=== PATIENT | female | born 2000 | race American Indian/Alaskan Native ===

== ENCOUNTER 2021-10-29 13:33 | Inpatient (IN) | payer MEDICAID ==
[2021-10-29] MEDS ORDERED: ACETAMINOPHEN 325 MG TAB PO PRN (13:56)
[2021-10-29] MEDS ORDERED: LACTATED RINGERS 1,000 ML IV SCH (14:00)
--- NOTE | 2021-10-29 14:02 | History and Physical Report ---
History of Present Illness Date of examination: 10/29/21 Date of admission: 10/29/2021 Chief complaint: Sent from [facility] for elevated BP. History of present illness: G1 @ 34.4w sent from [facility] for direct admission for BP monitoring and 24 hour urine collection. At the time of bedside assessment, BPs have been normotensive. NST reactive, irregular contractions not perceived by pt. Affirms FM and denies vaginal bleeding, LOF, abdominal pain, chest pain, SOB, vision changes, RUQ and NVD. Upon questioning, Pamela does endorse having a headache yesterday that resolved with Tylenol. Denies headache presently and states headache yesterday was an isolated event. Pt reports being nervous for [facility] appointments, particularly concerned about baby being breech w/ last US and needing a c- section, told today baby is cephalic which brings her much relief. Currently taking aspirin and PNV. Last bowel movement this AM. Plan of care during hospital stay discussed including BP monitoring, 24 hour urine, and monitoring. Education provided regarding signs and symptoms of pre-eclampsia, encouraged to verbalize any arising needs or concerns. Pt agreeable to plan of care. RNs completed bedside shift report and updated on POC. EDC Confirmation: 12/06/2021 Past History: : 1 Term Births: 0 Premature Births: 0 Living Children: 0 Para: 0 Mult. Births: 0 Prev : 0 Aborta: 0 Elect. Ab: 0 Spont. Ab: 0 Ectopics: 0 Past Medical History: Reviewed and updated today: Negative Past Surgical History: Reviewed and updated today: Negative Risk Factors: Smoked Tobacco Use: Never smoker Smokeless Tobacco Use: Never Counseled to Quit/Cut Down: yes Passive Smoke Exposure: no HIV High Risk Behavior: no Caffeine Use: 0 drinks per day Exercise: yes Times/wk: 3 Exercise Counseling: yes Seatbelt Use: preg-career counselor % Family History Risk Factors: Family History of WA in 1 Female Relative Age < 65: no Family History of WA in 1 Male Relative Age < 55: no No Dietary Counseling Reason: pn yes Alcohol Use: no Drug Use: no Past Medical History: Anesthesia Complications: negative Anemia: negative Autoimmune Disorder: negative Bleeding Disorder: negative Blood Transfusions: negative Breast Disease: negative Diabetes: negative Heart Disease: negative Hypertension: negative Hepatitis/Liver Disease: negative Kidney Disease/UTI: negative Neurologic/Epilepsy/Migraines: positive, reports migraines with seasonal pollen allergies, takes Zyrtec and Flonase Phlebitis/Varicosities: negative Psychiatric: negative Pulmonary Disease/Asthma: negative Thyroid Disease: negative Hospitalizations: negative Surgery (Non-machine bunch maker): negative Abnormal PAP: negative SATNAM Exposure: negative Infertility: negative Uterine Anomaly: negative Uterine Surgery (not C/S): negative Other Gynecologic Problems: negative Family Hx: MGM- HTN Aunt- HTN Infection History: HIV Risk Eval: no Hepatitis B Risk Eval: low risk Personal hx. of genital herpes: no Partner hx. of genital herpes: no Rash, Viral, or Febrile illness since last LMP? no Varicella/Chicken Pox Status: Unknown TB Risk: no Genetic History: Congenital Heart Defect: Mom: no Dad: no Wanda Disease: Mom: no Dad: no Thalassemia Mom: no Dad: no Neural Tube Defect Mom: no Dad: no Down's Syndrome Mom: no Dad: no Vidal-Sachs Mom: no Dad: no Sickle Cell Disease/Trait Mom: no Dad: no Hemophilia Mom: no Dad: no Muscular Dystrophy Mom: no Dad: no Cystic Fibrosis Mom: no Dad: no [place] Chorea Mom: no Dad: no Mental Retardation Mom: no Dad: no Fragile X Mom: no Dad: no Other Genetic/Chromosomal Disorder Mom: no Dad: no Child w/other defect Mom: no Dad: no Environmental Exposures: Xray Exposure: no Medication, drug, or alcohol use since LMP: no Chemical/Other Exposure: no Exposure to Cat Liter: no Hx of Parvovirus (Fifth Disease): no Occupational Exposure to Children: none Current Allergies (reviewed today): No known allergies Past History - Obstetrical History Expected Date of Delivery: 12/06/21 Actual Gestation: 34 Week(s) 5 Day(s) : 1 Para: 0 Hx # Term Pregnancies: 0 Number of Pregnancies: 0 Spontaneous Abortions: 0 Induced : 0 Number of Living Children: 0 Medications and Allergies Allergies Allergy/AdvReac Type Severity Reaction Status Date / Time No Known Allergies Allergy Unverified 10/29/21 14:14 Review of Systems Constitutional: no weight loss, no fever, no chills, no sweats, no chronic headaches, no chronic pain Eyes: no blurred vision, no photophobia, no decreased vision Cardiovascular: no chest pain, no orthopnea, no palpitations, no edema, no lightheadedness, no shortness of breath, no dyspnea on exertion, no high blood pressure, no leg edema Respiratory: no cough, no shortness of breath, no dyspnea on exertion Breasts: deferred Gastrointestinal: no abdominal pain, no nausea, no vomiting, no diarrhea, no constipation Genitourinary: deferred Rectal Exam: deferred Neurological: no seizures, no syncope, no headaches, no migraines, no double vision, no loss of vision Psychiatric: no anxiety, no difficulties concentrating, no confusion, no irritability, no sadness/tearfullness - Vital Signs Vital signs: Normotensive since arrival on unit. SVE deferred. Cat 1 FHT, irregular contractions not perceived by pt. - Physical Exam Breasts: Positive: deferred Cardiovascular: Regular rate, Normal S1, Normal S2 Lungs: Positive: Clear to auscultation, Normal air movement Abdomen: Positive: normal appearance, soft Extremities: Positive: normal Deep Tendon Reflex Grade: Normal +2 - Obstetrical FHR: category 1 Uterine Contraction Monitor Mode: External Uterine Contraction Pattern: Irregular Uterine Tone Measurement Phase: Resting Results Result Diagrams: 10/29/21 Unknown 10/29/21 Unknown All other labs normal. Assessment and Plan A: 20 yo G1 @ 34 weeks mild range BP at [facility] Blood pressures normotensive Cat 1 FHT Asymptomatic for s/sx of pre-eclampsia - Patient Problems (1) Elevated blood pressure affecting in third trimester, antepartum Current Visit: Yes Status: Acute Plan to address problem: Admit to labor and delivery per [facility] recommendation Initiate IV. Draw admission labs. Frequent BP monitoring 24 hour urine and serum pre-eclampsia labs ordered and drawn, results pending Education provided to pt regarding signs and symptoms of pre-eclampsia (2) 34 weeks gestation of Current Visit: Yes Status: Acute Plan to address problem: cEFM x4 hours, if FHT remains Cat 1, change to NST q4 hours
[2021-10-29] MEDS ORDERED: ALUM-MAG HYDROXIDE-SIMETHICONE 200-200-20MG/5ML ORAL LIQD 30 ML PO PRN (14:30)
[2021-10-29] MEDS ORDERED: ONDANSETRON 4 MG/2 ML INJ IV PRN (14:30)
[2021-10-29] MEDS ORDERED: DOCUSATE SODIUM 100 MG CAP PO PRN (14:30)
[2021-10-29] MEDS ORDERED: ACETAMINOPHEN 500 MG TAB PO PRN (15:00)
[2021-10-29 15:47] LABS: Basophils % (Auto) 0.2 % (0.0-1.8); Eosinophils # (Auto) 0.1 K/mm3 (0.0-0.4); Eosinophils % (Auto) 1.7 % (0.0-4.3); Hematocrit 34.2 % (30.3-42.9); Hemoglobin 11.5 gm/dl (10.1-14.3); Lymphocytes # (Auto) 1.9 K/mm3 (1.2-5.4); Lymphocytes % (Auto) 22.9 % (13.4-35.0); Mean Corpuscular HGB Conc 34 % (30-34); Mean Corpuscular Volume 92 fl (79-97); Monocytes # (Auto) 0.8 K/mm3 (0.0-0.8); Monocytes % (Auto) 9.6 % (0.0-7.3); Platelet Count 237 K/mm3 (140-440); Red Blood Count 3.72 M/mm3 (3.65-5.03); Red Cell Distribution Width 13.5 % (13.2-15.2)
[2021-10-29 15:49] LABS: Bacteria,Urine 1+ /HPF (Negative); Bilirubin,Urine NEG (Negative); Blood,Urine NEG (Negative); Color,Urine Yellow (Yellow); Mucus,Urine FEW /HPF; Protein,Urine <15 mg/dL mg/dL (Negative); Urobilinogen,Urine < 2.0 mg/dL (<2.0)
[2021-10-29 15:58] LABS: Alanine Aminotransferase 8 units/L (7-56); Albumin 3.5 g/dL (3.9-5); Blood Urea Nitrogen 3 mg/dL (7-17); Calcium 9.5 mg/dL (8.4-10.2); Hemolysis Index 5; Uric Acid 3.9 mg/dL (3.5-7.6)
[2021-10-29 16:00] LABS: BUN/Creatinine Ratio 8
[2021-10-29] MEDS ORDERED: MAGNESIUM HYDROXIDE (MOM) ORAL LIQD UDC PO PRN (22:00)
--- NOTE | 2021-10-30 07:20 | Progress Note ---
Assessment and Plan A: 20 y.o. @ 34.5 wks, elevated blood pressures at [facility] visit. - Patient Problems (1) Elevated blood pressure affecting in third trimester, antepartum Current Visit: Yes Status: Acute Plan to address problem: Continue to monitor blood pressures. Continue with 24 hr urine. Started @ 0300am. Continue to monitor for s/sx of pre eclampsia. (2) 34 weeks gestation of Current Visit: Yes Status: Acute Plan to address problem: q 4 hr NST. Continue to monitor for s/sx of distress through EFM. Subjective - Subjective Date of service: 10/30/21 Principal diagnosis: IUP @ 34 + wks, elevated blood pressures @ [facility] daniel ointment, 24 hr urine Interval history: Pt denies GUTIÉRREZ, blurred vision, spots before her eyes, chest pain, shortness of breath, upper abdominal pain, vaginal bleeding, LOF, and ctxs. Patient reports: movement normal, no new complaints, no loss of fluid, no vaginal bleeding, no contractions Objective - Vital Signs Vital Signs: Vital Signs - 12hr 10/29/21 10/29/21 10/29/21 19:23 19:42 19:47 Temperature Pulse Rate 98 H 64 87 Blood Pressure O2 Sat by Pulse 100 89 100 Oximetry O2 Sat by Pulse Oximetry [ Bilateral] 10/29/21 10/29/21 10/29/21 19:52 19:55 19:56 Temperature 98.3 F Pulse Rate 84 81 Blood Pressure 110/58 O2 Sat by Pulse 100 Oximetry O2 Sat by Pulse Oximetry [ Bilateral] 10/29/21 10/29/21 10/29/21 19:57 20:02 20:07 Temperature Pulse Rate 79 114 H 107 H Blood Pressure O2 Sat by Pulse 99 99 100 Oximetry O2 Sat by Pulse 99 Oximetry [ Bilateral] 10/29/21 10/29/21 10/29/21 20:12 20:17 20:22 Temperature Pulse Rate 114 H 93 H 102 H Blood Pressure O2 Sat by Pulse 100 100 100 Oximetry O2 Sat by Pulse Oximetry [ Bilateral] 10/29/21 10/29/21 10/29/21 20:27 20:32 20:37 Temperature Pulse Rate 98 H 83 97 H Blood Pressure O2 Sat by Pulse 100 100 99 Oximetry O2 Sat by Pulse Oximetry [ Bilateral] 04/10/29/21 10/29/21 20:42 20:47 20:52 Temperature Pulse Rate 91 H 93 H 106 H Blood Pressure O2 Sat by Pulse 100 98 99 Oximetry O2 Sat by Pulse Oximetry [ Bilateral] 10/29/21 10/29/21 10/29/21 20:57 20:58 21:02 Temperature Pulse Rate 86 92 H 113 H Blood Pressure 103/58 O2 Sat by Pulse 100 98 Oximetry O2 Sat by Pulse Oximetry [ Bilateral] 10/29/21 10/29/21 10/29/21 21:07 21:12 21:17 Temperature Pulse Rate 98 H 86 96 H Blood Pressure O2 Sat by Pulse 99 99 100 Oximetry O2 Sat by Pulse Oximetry [ Bilateral] 10/29/21 10/29/21 10/29/21 21:22 21:27 21:32 Temperature Pulse Rate 89 103 H 110 H Blood Pressure O2 Sat by Pulse 100 100 100 Oximetry O2 Sat by Pulse Oximetry [ Bilateral] 10/29/21 10/29/21 10/29/21 21:37 21:42 21:43 Temperature Pulse Rate 101 H 68 Blood Pressure O2 Sat by Pulse 100 88 72 L Oximetry O2 Sat by Pulse Oximetry [ Bilateral] 10/29/21 10/29/21 10/29/21 21:47 21:52 21:57 Temperature Pulse Rate 126 H 90 103 H Blood Pressure O2 Sat by Pulse 99 98 99 Oximetry O2 Sat by Pulse Oximetry [ Bilateral] 10/29/21 10/29/21 10/29/21 21:58 22:02 22:07 Temperature Pulse Rate 84 87 91 H Blood Pressure 115/71 O2 Sat by Pulse 100 99 Oximetry O2 Sat by Pulse Oximetry [ Bilateral] 10/29/21 10/29/21 10/29/21 22:12 22:17 22:22 Temperature Pulse Rate 100 H 93 H 80 Blood Pressure O2 Sat by Pulse 100 98 99 Oximetry O2 Sat by Pulse Oximetry [ Bilateral] 10/29/21 10/29/21 10/29/21 22:27 22:32 22:37 Temperature Pulse Rate 82 100 H 106 H Blood Pressure O2 Sat by Pulse 97 97 97 Oximetry O2 Sat by Pulse Oximetry [ Bilateral] 10/29/21 10/29/21 10/29/21 22:42 22:49 22:54 Temperature Pulse Rate 104 H 71 109 H Blood Pressure O2 Sat by Pulse 96 91 99 Oximetry O2 Sat by Pulse Oximetry [ Bilateral] 10/29/21 10/29/21 10/29/21 22:58 22:59 23:04 Temperature Pulse Rate 107 H 93 H 111 H Blood Pressure 116/63 O2 Sat by Pulse 99 98 Oximetry O2 Sat by Pulse Oximetry [ Bilateral] 10/29/21 10/29/21 10/29/21 23:09 23:14 23:19 Temperature Pulse Rate 100 H 98 H 103 H Blood Pressure O2 Sat by Pulse 97 98 98 Oximetry O2 Sat by Pulse Oximetry [ Bilateral] 10/29/21 10/29/21 10/29/21 23:24 23:29 23:34 Temperature Pulse Rate 95 H 110 H 102 H Blood Pressure O2 Sat by Pulse 98 98 98 Oximetry O2 Sat by Pulse Oximetry [ Bilateral] 10/29/21 10/29/21 10/29/21 23:39 23:44 23:49 Temperature Pulse Rate 102 H 112 H 105 H Blood Pressure O2 Sat by Pulse 99 98 98 Oximetry O2 Sat by Pulse Oximetry [ Bilateral] 10/29/21 10/29/21 10/30/21 23:54 23:58 00:00 Temperature Pulse Rate 113 H 111 H 109 H Blood Pressure 117/57 O2 Sat by Pulse 99 99 Oximetry O2 Sat by Pulse Oximetry [ Bilateral] 10/30/21 10/30/21 10/30/21 00:04 00:10 00:15 Temperature Pulse Rate 113 H 102 H 111 H Blood Pressure O2 Sat by Pulse 99 99 98 Oximetry O2 Sat by Pulse Oximetry [ Bilateral] 10/30/21 10/30/21 10/30/21 00:19 00:24 00:30 Temperature Pulse Rate 109 H 116 H 109 H Blood Pressure O2 Sat by Pulse 98 98 99 Oximetry O2 Sat by Pulse Oximetry [ Bilateral] 10/30/21 10/30/21 10/30/21 00:35 00:40 00:44 Temperature Pulse Rate 107 H 105 H 101 H Blood Pressure O2 Sat by Pulse 99 99 97 Oximetry O2 Sat by Pulse Oximetry [ Bilateral] 10/30/21 10/30/21 10/30/21 00:46 00:50 00:55 Temperature Pulse Rate 92 H 86 108 H Blood Pressure O2 Sat by Pulse 91 98 99 Oximetry O2 Sat by Pulse Oximetry [ Bilateral] 10/30/21 10/30/21 10/30/21 00:59 01:00 01:05 Temperature Pulse Rate 93 H 114 H 107 H Blood Pressure 126/82 O2 Sat by Pulse 99 100 Oximetry O2 Sat by Pulse Oximetry [ Bilateral] 10/30/21 10/30/21 10/30/21 01:09 01:15 01:20 Temperature Pulse Rate 111 H 112 H 110 H Blood Pressure O2 Sat by Pulse 100 99 100 Oximetry O2 Sat by Pulse Oximetry [ Bilateral] 10/30/21 10/30/21 10/30/21 01:24 01:30 01:35 Temperature Pulse Rate 87 99 H 93 H Blood Pressure O2 Sat by Pulse 98 99 98 Oximetry O2 Sat by Pulse Oximetry [ Bilateral] 10/30/21 10/30/21 10/30/21 01:40 01:44 01:50 Temperature Pulse Rate 111 H 100 H 96 H Blood Pressure O2 Sat by Pulse 99 98 99 Oximetry O2 Sat by Pulse Oximetry [ Bilateral] 10/30/21 10/30/21 10/30/21 01:55 01:58 02:00 Temperature Pulse Rate 105 H 104 H 89 Blood Pressure 132/73 O2 Sat by Pulse 99 100 Oximetry O2 Sat by Pulse Oximetry [ Bilateral] 10/30/21 10/30/21 10/30/21 02:04 02:10 02:15 Temperature Pulse Rate 94 H 98 H 95 H Blood Pressure O2 Sat by Pulse 100 100 99 Oximetry O2 Sat by Pulse Oximetry [ Bilateral] 10/30/21 10/30/21 10/30/21 02:20 02:25 02:30 Temperature Pulse Rate 102 H 98 H 98 H Blood Pressure O2 Sat by Pulse 98 99 99 Oximetry O2 Sat by Pulse Oximetry [ Bilateral] 10/30/21 10/30/21 10/30/21 02:35 02:40 02:44 Temperature Pulse Rate 88 98 H 107 H Blood Pressure O2 Sat by Pulse 99 99 98 Oximetry O2 Sat by Pulse Oximetry [ Bilateral] 10/30/21 10/30/21 10/30/21 02:50 02:54 02:58 Temperature Pulse Rate 95 H 101 H 98 H Blood Pressure 114/61 O2 Sat by Pulse 99 99 Oximetry O2 Sat by Pulse Oximetry [ Bilateral] 10/30/21 10/30/21 10/30/21 03:02 03:07 03:11 Temperature Pulse Rate 104 H 87 95 H Blood Pressure O2 Sat by Pulse 95 98 98 Oximetry O2 Sat by Pulse Oximetry [ Bilateral] 10/30/21 10/30/21 10/30/21 03:16 03:22 03:27 Temperature Pulse Rate 88 86 82 Blood Pressure O2 Sat by Pulse 100 99 99 Oximetry O2 Sat by Pulse Oximetry [ Bilateral] 10/30/21 10/30/21 10/30/21 03:32 03:37 03:41 Temperature Pulse Rate 119 H 112 H 91 H Blood Pressure O2 Sat by Pulse 100 100 97 Oximetry O2 Sat by Pulse Oximetry [ Bilateral] 10/30/21 10/30/21 10/30/21 03:47 03:52 03:57 Temperature Pulse Rate 91 H 78 81 Blood Pressure O2 Sat by Pulse 98 99 99 Oximetry O2 Sat by Pulse Oximetry [ Bilateral] 10/30/21 10/30/21 10/30/21 03:58 04:01 04:06 Temperature Pulse Rate 88 82 78 Blood Pressure 111/62 O2 Sat by Pulse 99 99 Oximetry O2 Sat by Pulse Oximetry [ Bilateral] 10/30/21 10/30/21 10/30/21 04:12 04:17 04:22 Temperature Pulse Rate 92 H 93 H 92 H Blood Pressure O2 Sat by Pulse 99 97 98 Oximetry O2 Sat by Pulse Oximetry [ Bilateral] 10/30/21 10/30/21 10/30/21 04:27 04:31 04:36 Temperature Pulse Rate 95 H 94 H 91 H Blood Pressure O2 Sat by Pulse 97 97 97 Oximetry O2 Sat by Pulse Oximetry [ Bilateral] 10/30/21 10/30/21 10/30/21 04:42 04:47 04:51 Temperature Pulse Rate 98 H 93 H 90 Blood Pressure O2 Sat by Pulse 97 97 98 Oximetry O2 Sat by Pulse Oximetry [ Bilateral] 10/30/21 10/30/21 10/30/21 04:57 04:59 05:01 Temperature Pulse Rate 94 H 104 H 93 H Blood Pressure 114/55 O2 Sat by Pulse 98 99 Oximetry O2 Sat by Pulse Oximetry [ Bilateral] 10/30/21 10/30/21 10/30/21 05:07 05:12 05:17 Temperature Pulse Rate 102 H 114 H 101 H Blood Pressure O2 Sat by Pulse 98 99 98 Oximetry O2 Sat by Pulse Oximetry [ Bilateral] 10/30/21 10/30/21 10/30/21 05:22 05:27 05:32 Temperature Pulse Rate 79 95 H 104 H Blood Pressure O2 Sat by Pulse 98 98 98 Oximetry O2 Sat by Pulse Oximetry [ Bilateral] 10/30/21 10/30/21 10/30/21 05:37 05:41 05:47 Temperature Pulse Rate 111 H 94 H 82 Blood Pressure O2 Sat by Pulse 98 100 99 Oximetry O2 Sat by Pulse Oximetry [ Bilateral] 10/30/21 10/30/21 10/30/21 05:51 05:57 05:58 Temperature Pulse Rate 80 80 80 Blood Pressure 106/54 O2 Sat by Pulse 99 99 Oximetry O2 Sat by Pulse Oximetry [ Bilateral] 10/30/21 10/30/21 10/30/21 06:02 06:07 06:12 Temperature Pulse Rate 81 88 40 L Blood Pressure O2 Sat by Pulse 99 99 94 Oximetry O2 Sat by Pulse Oximetry [ Bilateral] 10/30/21 10/30/21 10/30/21 06:13 06:18 06:23 Temperature Pulse Rate 40 L 78 79 Blood Pressure O2 Sat by Pulse 89 98 99 Oximetry O2 Sat by Pulse Oximetry [ Bilateral] 10/30/21 10/30/21 10/30/21 06:28 06:33 06:38 Temperature Pulse Rate 75 86 86 Blood Pressure O2 Sat by Pulse 98 98 98 Oximetry O2 Sat by Pulse Oximetry [ Bilateral] 10/30/21 10/30/21 10/30/21 06:42 06:48 06:53 Temperature Pulse Rate 82 78 79 Blood Pressure O2 Sat by Pulse 98 98 98 Oximetry O2 Sat by Pulse Oximetry [ Bilateral] 10/30/21 10/30/21 10/30/21 06:57 06:58 07:03 Temperature Pulse Rate 100 H 82 62 Blood Pressure 115/63 O2 Sat by Pulse 98 98 Oximetry O2 Sat by Pulse Oximetry [ Bilateral] 10/30/21 10/30/21 07:08 07:12 Temperature Pulse Rate 96 H 95 H Blood Pressure O2 Sat by Pulse 98 98 Oximetry O2 Sat by Pulse Oximetry [ Bilateral] - Exam Narrative Exam: Blood pressure ranges have been 110's-120/50's-80's. Breasts: deferred Cardiovascular: Normal S1, Normal S2 Lungs: Clear to auscultation Abdomen: Present: normal appearance, soft FHR: category 1 Uterine Contraction Monitor Mode: External Uterine Contraction Pattern: Absent Extremities: normal Deep Tendon Reflex Grade: Normal +2 - Labs Labs: Abnormal Labs 10/29/21 10/29/21 10/29/21 Unknown Unknown Unknown [place] % (Auto) 9.6 H Sodium 136 L Carbon Dioxide 20 L BUN 3 L Creatinine 0.4 L Alkaline Phosphatase 173 H Albumin 3.5 L Urine WBC (Auto) 37.0 H U Epithel Cells (Auto) 20.0 H Laboratory Results - last 24 hr 10/29/21 10/29/21 10/29/21 Unknown Unknown Unknown WBC 8.1 RBC 3.72 Hgb 11.5 Hct 34.2 MCV 92 MCH 31 MCHC 34 RDW 13.5 Plt Count 237 Lymph % (Auto) 22.9 [place] % (Auto) 9.6 H Eos % (Auto) 1.7 Baso % (Auto) 0.2 Lymph # (Auto) 1.9 [place] # (Auto) 0.8 Eos # (Auto) 0.1 Baso # (Auto) 0.0 Seg Neutrophils % 65.6 Seg Neutrophils # 5.3 Sodium 136 L Potassium 4.1 Chloride 103.4 Carbon Dioxide 20 L Anion Gap 17 BUN 3 L Creatinine 0.4 L Estimated GFR > 60 BUN/Creatinine Ratio 8 Glucose 76 Uric Acid 3.9 Calcium 9.5 Magnesium 1.70 Total Bilirubin 0.40 AST 19 ALT 8 Alkaline Phosphatase 173 H Total Protein 6.5 Albumin 3.5 L Albumin/Globulin Ratio 1.2 Urine Color Yellow Urine Turbidity Slightly-cloudy Urine pH 6.0 Ur Specific [place] 1.008 Urine Protein <15 mg/dl Urine Glucose (UA) Neg Urine Ketones Neg Urine Blood Neg Urine Nitrite Neg Urine Bilirubin Neg Urine Urobilinogen < 2.0 Ur Leukocyte Esterase Mod Urine WBC (Auto) 37.0 H Urine RBC (Auto) 2.0 U Epithel Cells (Auto) 20.0 H Urine Bacteria (Auto) 1+ Urine Mucus Few Urine Yeast (Budding) 1+ Blood Type Antibody Screen 10/29/21 Unknown WBC RBC Hgb Hct MCV MCH MCHC RDW Plt Count Lymph % (Auto) [place] % (Auto) Eos % (Auto) Baso % (Auto) Lymph # (Auto) [place] # (Auto) Eos # (Auto) Baso # (Auto) Seg Neutrophils % Seg Neutrophils # Sodium Potassium Chloride Carbon Dioxide Anion Gap BUN Creatinine Estimated GFR BUN/Creatinine Ratio Glucose Uric Acid Calcium Magnesium Total Bilirubin AST ALT Alkaline Phosphatase Total Protein Albumin Albumin/Globulin Ratio Urine Color Urine Turbidity Urine pH Ur Specific [place] Urine Protein Urine Glucose (UA) Urine Ketones Urine Blood Urine Nitrite Urine Bilirubin Urine Urobilinogen Ur Leukocyte Esterase Urine WBC (Auto) Urine RBC (Auto) U Epithel Cells (Auto) Urine Bacteria (Auto) Urine Mucus Urine Yeast (Budding) Blood Type A POSITIVE Antibody Screen Negative
[2021-10-30] MEDS ORDERED: PRENATAL VIT27-FE FUMARATE-FOLIC ACID VIT TAB PO SCH (10:00)
--- NOTE | 2021-10-30 17:48 | Consultation ---
History of Present Illness Consult date: 10/30/21 Past History - Obstetrical History : 1 Medications and Allergies Allergies Allergy/AdvReac Type Severity Reaction Status Date / Time No Known Allergies Allergy Unverified 10/29/21 14:14 Active Meds: Active Medications Acetaminophen (Acetaminophen 500 Mg Tab) 1,000 mg PO Q6H PRN PRN Reason: Pain, Mild(1-3)/Fever>100.5/GUTIÉRREZ Al Hydrox/Mg Hydrox/Simethicone (Alum-Mag Hydroxide-Simethicone [phone]/5ml Oral Liqd 30 Ml) 30 ml PO Q6H PRN PRN Reason: Indigestion Docusate Sodium (Docusate Sodium 100 Mg Cap) 100 mg PO Q12H PRN PRN Reason: Constipation Lactated Ringer's (Lactated Ringers) 1,000 mls @ 50 mls/hr IV DIRECT DESMOND Magnesium Hydroxide (Magnesium Hydroxide (Mom) Oral Liqd Udc) 30 ml PO QHS PRN PRN Reason: Laxative Effect Multivitamins/Iron/Calcium ( [id number]-Uu Fumarate-Folic Acid Vit Tab) 1 each PO QDAY DESMOND Last Admin: 10/30/21 10:37 Dose: 1 each Ondansetron HCl (Ondansetron 4 Mg/2 Ml Inj) 4 mg IV Q6H PRN PRN Reason: Nausea And Vomiting - Vital Signs Vital signs: Vital Signs Pulse BP 86 124/74 10/29/21 14:11 10/29/21 14:11 Temp Pulse Resp BP Pulse Ox 97.9 F 72 18 118/77 100 10/30/21 12:28 10/30/21 16:36 10/30/21 12:28 10/30/21 15:58 10/30/21 16:36 Results Result Diagrams: 10/29/21 Unknown 10/29/21 Unknown All other labs normal. Assessment and Plan AMFM Pt seen Consult to follow
--- NOTE | 2021-10-31 07:50 | Discharge Summary ---
Providers - Providers Date of Admission: 10/29/21 13:56 Date of discharge: 10/31/21 Attending physician: SHRUTI BEATTY Primary care physician: SHRUTI BEATTY Hospitalization Reason for admission: observation Discharge diagnosis: other (IUP in third trimester, GHTN) Condition at discharge: Good Disposition: 01 HOME / SELF CARE / HOMELESS - Discharge Diagnoses (1) 34 weeks gestation of Status: Acute (2) Elevated blood pressure affecting in third trimester, antepartum Status: Acute Comment: Pt desires discharge home. Per [facility] consultation, pt may be discharged home if blood pressures stable and status reassuring. VSSAF, FHT's category 1. Pt denies GUTIÉRREZ, vision changes, and pain. Reports good movement. Abdomen soft and nontender. Precautions reviewed. Pt to follow up as scheduled with MyOB[facility] on Wednesday and AMFM visit on Wednesday. Pt verbalizes understanding and agrees with POC. Dr. Denise connell. Plan - Provider Discharge Summary Activity: routine Diet: routine Instructions: routine Additional instructions: [] Smoking cessation referral if applicable(refer to patient education folder for contact #) [] Refer to [facility]'s [facility] Booklet Call your doctor immediately for: * Fever > 100.5 * vaginal bleeding * Severe persistent headache * Shortness of breath * Reddened, hot, painful area to leg or breast * vision changes * abdominal pain * more than 6 contractions per hour * leaking of vaginal fluid * Please call [phone] with any questions or concerns. Please attend visits as scheduled with [facility]OB[facility]N on Wednesday and AMFM on Wednesday. Thank you! - Follow up plan Follow up: SHRUTI BEATTY MD [Primary Care Provider] - 7 Days
[2021-10-31 07:54] VITALS: BP 98/53
[2021-10-31] MEDS ORDERED: CETIRIZINE 10 MG TAB PO SCH (10:00)
== END 2021-10-31 08:39 | disposition home or self-care (01) | DRG 781 ==
LOC: TRG 13:33 → APU 13:34 → TRG 14:04 → LD 16:20
PROVIDERS: ADMIT Obstetrics & Gynecology; ATTEND Obstetrics & Gynecology
DX: O26.893 Other specified pregnancy related conditions, third trimester (principal); O13.3 Gestational [pregnancy-induced] hypertension without significant proteinuria, third trimester; Z3A.34 34 weeks gestation of pregnancy
CPT/HCPCS: 36415; 80053; 81001; 83735; 84156; 84550; 85025; 86850; 86900; 86901; 87086; G0378; U0003